=== PATIENT | male | born 1990 | race African-American/Black ===

== ENCOUNTER 2023-05-18 17:31 | Inpatient (IN) | payer OTHER ==
[2023-05-18] VITALS (7 sets, daily range): BP systolic 109–133; BP diastolic 68–83; TEMP 96; O2SAT 96–99
[~2023-05-18] VITALS: Ht 172.7 cm; Wt 69.4 kg
[2023-05-18] MEDS ORDERED: PIPERACILLIN /TAZOBACTAM 3.375 G in IV D5W 50 ML IV ONE (18:30)
[2023-05-18] MEDS ORDERED: ALBUTEROL FS 2.5 MG/3 ML VIAL.NEB CONTNEB ONE (18:30)
[2023-05-18] MEDS ORDERED: IBUP-1955 PO (18:31)
[2023-05-18] MEDS ORDERED: HYDR-500 PO (18:31)
[2023-05-18 19:10] LABS: BASOPHILS % (AUTO) 0.1 % (0.0-2.0); HEMATOCRIT 43 % (39-51); HEMOGLOBIN 13.7 g/dL (13.5-17.5); LYMPHOCYTES # (AUTO) 0.4 K/uL (0.8-4.8); LYMPHOCYTES % (AUTO) 1.7 % (20.0-44.0); MEAN CORPUSCULAR HEMOGLOBIN 26 PG (26.0-33.0); MEAN CORPUSCULAR HGB CONC 32 g/dl (31.0-36.0); MEAN CORPUSCULAR VOLUME 82 fL (80-96); MONOCYTES # (AUTO) 0.8 K/uL (0.1-1.30); MONOCYTES % (AUTO) 3.9 % (2.0-12.0); NEUTROPHILS # (AUTO) 20.3 K/uL (1.8-8.9); NEUTROPHILS % (AUTO) 94.3 % (43.0-81.0); PLATELET COUNT (AUTO) 278 K/uL (150-450); RED BLOOD CELL COUNT(AUTO) 5.24 MIL/uL (4.5-6.0); RED CELL DISTRIBUTION WIDTH 14.4 % (11.5-15.0); WHITE BLOOD COUNT (AUTO) 21.6 K/uL (4.3-11.0)
[2023-05-18] MEDS ORDERED: ALBUTEROL FS 2.5 MG/3 ML VIAL.NEB ONE (19:18)
[2023-05-18 19:21] LABS: CALCIUM, SERUM 9.3 mg/dL (8.5-10.1); CARBON DIOXIDE 23 mmol/L (21-32); CHLORIDE 100 mmol/L (98-107); GLUCOSE 125 mg/dL (74-106); SODIUM SERUM 134 mmol/L (136-145); UREA NITROGEN, BLOOD 12 mg/dL (7-18)
[2023-05-18 19:27] LABS: INR 1.02 (0.91-1.10); PARTIAL THROMBOPLASTIN TIME 27.5 SEC (24.3-34.3); PROTHROMBIN TIME 10.8 SECS (9.2-11.1)
[2023-05-18 19:28] LABS: D-DIMER 6.08 mg/L(FEU (0.17-0.50)
[2023-05-18 19:29] LABS: LACTIC ACID 1.4 mmol/L (0.4-2.0)
[2023-05-18 19:34] LABS: ALANINE AMINOTRANSFERASE 26 U/L (12-78); ALBUMIN 3.4 g/dL (3.4-5.0); ALKALINE PHOSPHATASE 139 U/L (46-116); ASPARTATE AMINOTRANSFERASE 66 U/L (15-37); BILIRUBIN,DIRECT 0.2 mg/dL (0.0-0.2); BILIRUBIN,TOTAL 0.9 mg/dL (0.2-1.0); NT-PRO BNP 60 pg/mL (0-125); TOTAL PROTEIN, SERUM 8.3 g/dL (6.4-8.2)
[2023-05-18] MEDS ORDERED: IOHEXOL-350 100 ML VIAL IV ONE (19:53)
[2023-05-18] MEDS ORDERED: IV NS 0.9% 250 ML IV ONE (19:53)
[2023-05-18] MEDS ORDERED: ALBUTEROL FS 2.5 MG/0.5 ML VIAL.NEB NEB PRN (20:00)
[2023-05-18] MEDS ORDERED: MORPHINE SULFATE INJ 2 MG/ML DISP.SYRIN IV PRN (20:00)
[2023-05-18 21:29] LABS: EOSINOPHILS % (MANUAL) 1 % (0-4); LYMPHOCYTES % (MANUAL) 7 % (16-48); MONOCYTES % (MANUAL) 8 % (0-11.0); NEUTROPHILS % (MANUAL) 84 (42-76); PLATELET ESTIMATE ADEQUATE
[2023-05-18] MEDS: IV NS 0.9% 1,000 ML IV SCH (22:58)
[2023-05-18] MEDS ORDERED: CEFEPIME 1 GM VIAL ONE (23:37)
[2023-05-18] MEDS: CEFEPIME 2 GM in IV D5W 100 ML IV SCH (23:46)
[2023-05-19] VITALS (45 sets, daily range): BP systolic 98–154; BP diastolic 63–100; TEMP 96.3–98.4; O2SAT 9–100
[2023-05-19] MEDS ORDERED: IPRATROPIUM/ALBUTEROL INHALER IH SCH
[2023-05-19] MEDS: ALBUTEROL FS 2.5 MG/0.5 ML VIAL.NEB NEB SCH ×4 (01:53→19:30)
[2023-05-19] MEDS: IPRATROPIUM NEB FS 0.5 MG/2.5 ML AMPUL.NEB IH SCH ×4 (01:53→19:30)
[2023-05-19 04:16] LABS: HEMATOCRIT 38 % (39-51); HEMOGLOBIN 12.2 g/dL (13.5-17.5); LYMPHOCYTES # (AUTO) 0.7 K/uL (0.8-4.8); LYMPHOCYTES % (AUTO) 2.6 % (20.0-44.0); MEAN CORPUSCULAR HEMOGLOBIN 26 PG (26.0-33.0); MEAN CORPUSCULAR HGB CONC 33 g/dl (31.0-36.0); MEAN CORPUSCULAR VOLUME 80 fL (80-96); MONOCYTES # (AUTO) 1.4 K/uL (0.1-1.30); MONOCYTES % (AUTO) 5.4 % (2.0-12.0); NEUTROPHILS # (AUTO) 23.8 K/uL (1.8-8.9); PLATELET COUNT (AUTO) 253 K/uL (150-450); RED BLOOD CELL COUNT(AUTO) 4.68 MIL/uL (4.5-6.0); RED CELL DISTRIBUTION WIDTH 14.3 % (11.5-15.0); WHITE BLOOD COUNT (AUTO) 25.9 K/uL (4.3-11.0)
[2023-05-19 04:28] LABS: ALBUMIN 3.1 g/dL (3.4-5.0); CALCIUM, SERUM 9.4 mg/dL (8.5-10.1); CREATININE 0.9 mg/dL (0.6-1.3); PHOSPHORUS 4.2 mg/dL (2.5-4.9); POTASSIUM 4.3 mmol/L (3.5-5.1); TOTAL PROTEIN, SERUM 7.8 g/dL (6.4-8.2)
[2023-05-19] MEDS: CEFEPIME 2 GM in IV D5W 100 ML IV SCH (07:39)
[2023-05-19] MEDS: IV NS 0.9% 1,000 ML IV SCH (08:51)
[2023-05-19] MEDS: ACETAMINOPHEN 325 MG TABLET PO PRN ×2 (09:57→18:02)
[2023-05-19] MEDS: PIPERACILLIN /TAZOBACTAM 3.375 G in IV D5W 100 ML IV SCH ×2 (10:49→18:02)
[2023-05-19] MEDS ORDERED: PIPERACILLIN /TAZOBACTAM 4.5 G in IV D5W 50 ML IV SCH (12:00)
[2023-05-19] MEDS: VANCOMYCIN 1 GM in IV D5W 250ml IV SCH ×2 (12:52→20:53)
[2023-05-19] MEDS ORDERED: CEFEPIME 2 GM in IV D5W 100 ML IV SCH (13:00)
[2023-05-20] VITALS (31 sets, daily range): BP systolic 98–139; BP diastolic 62–89; TEMP 98.4–101.7; O2SAT 87–100
[2023-05-20] MEDS: ACETAMINOPHEN 325 MG TABLET PO PRN ×3 (00:33→19:56)
[2023-05-20] MEDS: MORPHINE SULFATE INJ 2 MG/ML DISP.SYRIN IV PRN ×2 (00:38→02:55)
[2023-05-20] MEDS: IV NS 0.9% 1,000 ML IV SCH (00:53)
[2023-05-20] MEDS: ALBUTEROL FS 2.5 MG/0.5 ML VIAL.NEB NEB SCH ×5 (01:30→19:30)
[2023-05-20] MEDS: IPRATROPIUM NEB FS 0.5 MG/2.5 ML AMPUL.NEB IH SCH ×5 (01:30→19:30)
[2023-05-20] MEDS: PIPERACILLIN /TAZOBACTAM 3.375 G in IV D5W 100 ML IV SCH ×3 (03:04→18:21)
[2023-05-20] MEDS: VANCOMYCIN 1 GM in IV D5W 250ml IV SCH ×4 (04:46→23:50)
[2023-05-20 07:27] LABS: POTASSIUM 3.8 mmol/L (3.5-5.1)
[2023-05-20 11:21] LABS: BASOPHILS % (AUTO) 0.1 % (0.0-2.0); HEMATOCRIT 37 % (39-51); HEMOGLOBIN 12.3 g/dL (13.5-17.5); LYMPHOCYTES # (AUTO) 0.7 K/uL (0.8-4.8); LYMPHOCYTES % (AUTO) 4.9 % (20.0-44.0); MEAN CORPUSCULAR HEMOGLOBIN 27 PG (26.0-33.0); MEAN CORPUSCULAR HGB CONC 33 g/dl (31.0-36.0); MEAN CORPUSCULAR VOLUME 81 fL (80-96); MONOCYTES % (AUTO) 6.8 % (2.0-12.0); NEUTROPHILS # (AUTO) 13.1 K/uL (1.8-8.9); NEUTROPHILS % (AUTO) 88.2 % (43.0-81.0); PLATELET COUNT (AUTO) 234 K/uL (150-450); RED BLOOD CELL COUNT(AUTO) 4.62 MIL/uL (4.5-6.0); WHITE BLOOD COUNT (AUTO) 14.8 K/uL (4.3-11.0)
[2023-05-20] MEDS: methylPREDNISolone SOD SUCC 40 MG/ML VIAL IV SCH (16:44)
[2023-05-21] VITALS (36 sets, daily range): BP systolic 96–139; BP diastolic 66–103; TEMP 98.1–99.2; O2SAT 62–100
[2023-05-21] MEDS: IPRATROPIUM NEB FS 0.5 MG/2.5 ML AMPUL.NEB IH SCH ×4 (01:16→19:28)
[2023-05-21] MEDS: ALBUTEROL FS 2.5 MG/0.5 ML VIAL.NEB NEB SCH ×4 (01:16→19:28)
[2023-05-21] MEDS: MORPHINE SULFATE INJ 2 MG/ML DISP.SYRIN IV PRN ×2 (01:30→11:34)
[2023-05-21] MEDS: PIPERACILLIN /TAZOBACTAM 3.375 G in IV D5W 100 ML IV SCH ×2 (02:33→11:34)
[2023-05-21] MEDS: ACETAMINOPHEN 325 MG TABLET PO PRN ×2 (03:51→20:19)
[2023-05-21 04:57] LABS: CALCIUM, SERUM 9.9 mg/dL (8.5-10.1); POTASSIUM 3.9 mmol/L (3.5-5.1)
[2023-05-21] MEDS: VANCOMYCIN 1 GM in IV D5W 250ml IV SCH (06:26)
[2023-05-21 09:07] LABS: BASOPHILS # (AUTO) 0.1 K/uL (0.0-0.2); BASOPHILS % (AUTO) 0.7 % (0.0-2.0); EOSINOPHILS % (AUTO) 0.1 % (0.0-6.0); HEMATOCRIT 41 % (39-51); HEMOGLOBIN 13.4 g/dL (13.5-17.5); LYMPHOCYTES # (AUTO) 0.7 K/uL (0.8-4.8); LYMPHOCYTES % (AUTO) 5.4 % (20.0-44.0); MEAN CORPUSCULAR HEMOGLOBIN 27 PG (26.0-33.0); MEAN CORPUSCULAR HGB CONC 33 g/dl (31.0-36.0); MEAN CORPUSCULAR VOLUME 82 fL (80-96); NEUTROPHILS # (AUTO) 11.7 K/uL (1.8-8.9); NEUTROPHILS % (AUTO) 86.8 % (43.0-81.0); PLATELET COUNT (AUTO) 251 K/uL (150-450); RED CELL DISTRIBUTION WIDTH 14.1 % (11.5-15.0); WHITE BLOOD COUNT (AUTO) 13.5 K/uL (4.3-11.0)
[2023-05-21] MEDS: methylPREDNISolone SOD SUCC 40 MG/ML VIAL IV SCH ×2 (09:43→16:13)
[2023-05-21] MEDS: MENTHOL/CETYLPYRD (CEPACOL) 1 LOZ LOZENGE PO PRN ×2 (14:39→16:12)
[2023-05-21] MEDS ORDERED: ENOXAPARIN SODIUM 40 MG/0.4 ML DISP.SYRIN SQ SCH (15:00)
[2023-05-21] MEDS: ALPRAZOLAM 0.25 MG TABLET PO PRN (16:13)
[2023-05-21] MEDS: VANCOMYCIN 1.25 GM in IV D5W 250 ML IV SCH ×2 (17:27→21:45)
[2023-05-21] MEDS: ZOSYN IVPB 3.375 G in IV D5W 50ml IV SCH ×2 (20:17→23:43)
[2023-05-22] VITALS (23 sets, daily range): BP systolic 111–137; BP diastolic 33–106; TEMP 97.4–99.2; O2SAT 85–100
[2023-05-22] MEDS: IPRATROPIUM NEB FS 0.5 MG/2.5 ML AMPUL.NEB IH SCH ×3 (01:10→20:04)
[2023-05-22] MEDS: ALBUTEROL FS 2.5 MG/0.5 ML VIAL.NEB NEB SCH ×3 (01:11→20:04)
[2023-05-22] MEDS: MORPHINE SULFATE INJ 2 MG/ML DISP.SYRIN IV PRN ×2 (04:12→19:48)
[2023-05-22] MEDS: VANCOMYCIN 1.25 GM in IV D5W 250 ML IV SCH ×3 (05:12→21:13)
[2023-05-22] MEDS: ACETAMINOPHEN 325 MG TABLET PO PRN ×2 (05:40→17:30)
[2023-05-22] MEDS: ZOSYN IVPB 3.375 G in IV D5W 50ml IV SCH ×4 (05:44→23:28)
[2023-05-22] MEDS: methylPREDNISolone SOD SUCC 40 MG/ML VIAL IV SCH ×2 (08:10→17:30)
[2023-05-22 08:42] LABS: CALCIUM, SERUM 9.5 mg/dL (8.5-10.1); CREATININE 0.8 mg/dL (0.6-1.3); POTASSIUM 4.3 mmol/L (3.5-5.1)
[2023-05-22] MEDS: MENTHOL/CETYLPYRD (CEPACOL) 1 LOZ LOZENGE PO PRN (09:29)
[2023-05-22] MEDS: ONDANSETRON HCL/PF 4 MG/2 ML VIAL IVP PRN (23:35)
[2023-05-23] VITALS (10 sets, daily range): BP systolic 111–128; BP diastolic 66–76; TEMP 97.5–98.2; O2SAT 95–99
[2023-05-23] MEDS: IPRATROPIUM NEB FS 0.5 MG/2.5 ML AMPUL.NEB IH SCH ×4 (01:30→20:41)
[2023-05-23] MEDS: ALBUTEROL FS 2.5 MG/0.5 ML VIAL.NEB NEB SCH ×4 (01:30→20:41)
[2023-05-23] MEDS: ZOSYN IVPB 3.375 G in IV D5W 50ml IV SCH ×4 (05:31→23:52)
[2023-05-23] MEDS: VANCOMYCIN 1.25 GM in IV D5W 250 ML IV SCH ×3 (06:27→21:32)
[2023-05-23] MEDS: methylPREDNISolone SOD SUCC 40 MG/ML VIAL IV SCH ×2 (08:23→16:32)
[2023-05-23] MEDS: ALPRAZOLAM 0.25 MG TABLET PO PRN ×2 (10:51→21:43)
[2023-05-23] MEDS: HYDROCODONE BIT/HOMATROPINE 5 ML UDC PO PRN (13:07)
[2023-05-23] MEDS: ACETAMINOPHEN 325 MG TABLET PO PRN (16:32)
[2023-05-23] MEDS ORDERED: diphenhydrAMINE HCL 25 MG CAPSULE PO PRN (20:30)
[2023-05-23] MEDS ORDERED: FAMOTIDINE/PF INJ 20 MG/2 ML VIAL IV ONE (20:30)
[2023-05-23] MEDS: MORPHINE SULFATE INJ 2 MG/ML DISP.SYRIN IV PRN (22:56)
[2023-05-24] VITALS (12 sets, daily range): BP systolic 109–130; BP diastolic 65–84; TEMP 97.7–98.2; O2SAT 95–100
[2023-05-24] MEDS: IPRATROPIUM NEB FS 0.5 MG/2.5 ML AMPUL.NEB IH SCH ×4 (01:30→19:56)
[2023-05-24] MEDS: ALBUTEROL FS 2.5 MG/0.5 ML VIAL.NEB NEB SCH ×4 (01:30→19:56)
[2023-05-24] MEDS: VANCOMYCIN 1.25 GM in IV D5W 250 ML IV SCH ×3 (05:26→22:08)
[2023-05-24] MEDS: ZOSYN IVPB 3.375 G in IV D5W 50ml IV SCH (05:28)
[2023-05-24] MEDS: HYDROCODONE BIT/HOMATROPINE 5 ML UDC PO PRN ×2 (06:47→14:28)
[2023-05-24 06:56] LABS: CALCIUM, SERUM 8.7 mg/dL (8.5-10.1); CREATININE 0.7 mg/dL (0.6-1.3); POTASSIUM 3.6 mmol/L (3.5-5.1)
[2023-05-24] MEDS: ACETAMINOPHEN 325 MG TABLET PO PRN (06:57)
[2023-05-24] MEDS: ALPRAZOLAM 0.25 MG TABLET PO PRN ×2 (07:02→16:28)
[2023-05-24] MEDS: methylPREDNISolone SOD SUCC 40 MG/ML VIAL IV SCH ×2 (09:07→16:28)
[2023-05-24] MEDS: PIPERACILLIN /TAZOBACTAM 3.375 G in IV D5W 100 ML IV SCH ×2 (12:01→20:16)
[2023-05-24] MEDS: ONDANSETRON HCL/PF 4 MG/2 ML VIAL IVP PRN (20:16)
[2023-05-24] MEDS: MORPHINE SULFATE INJ 2 MG/ML DISP.SYRIN IV PRN (20:39)
[2023-05-25] VITALS (11 sets, daily range): BP systolic 107–136; BP diastolic 65–84; TEMP 97.7–98.6; O2SAT 95–100
[2023-05-25] MEDS: ALBUTEROL FS 2.5 MG/0.5 ML VIAL.NEB NEB SCH ×4 (01:30→20:02)
[2023-05-25] MEDS: IPRATROPIUM NEB FS 0.5 MG/2.5 ML AMPUL.NEB IH SCH ×4 (01:30→20:02)
[2023-05-25] MEDS: ZOSYN IVPB 3.375 G in IV D5W 50ml IV SCH ×4 (03:34→20:35)
[2023-05-25 07:23] LABS: CALCIUM, SERUM 8.9 mg/dL (8.5-10.1); CREATININE 0.7 mg/dL (0.6-1.3); POTASSIUM 3.6 mmol/L (3.5-5.1)
[2023-05-25] MEDS: methylPREDNISolone SOD SUCC 40 MG/ML VIAL IV SCH (08:28)
[2023-05-25] MEDS: HYDROCODONE BIT/HOMATROPINE 5 ML UDC PO PRN ×2 (08:55→22:53)
[2023-05-25] MEDS: VANCOMYCIN 1.25 GM in IV D5W 250 ML IV SCH ×3 (09:11→21:25)
[2023-05-25] MEDS: ALPRAZOLAM 0.25 MG TABLET PO PRN ×2 (09:13→21:25)
[2023-05-25] MEDS: ONDANSETRON HCL/PF 4 MG/2 ML VIAL IVP PRN ×2 (10:43→22:53)
[2023-05-25] MEDS: ACETAMINOPHEN 325 MG TABLET PO PRN (10:52)
[2023-05-25] MEDS: MORPHINE SULFATE INJ 2 MG/ML DISP.SYRIN IV PRN (19:52)
[2023-05-25] MEDS: MENTHOL/CETYLPYRD (CEPACOL) 1 LOZ LOZENGE PO PRN (21:26)
[2023-05-26] VITALS (10 sets, daily range): BP systolic 121–146; BP diastolic 75–97; TEMP 98–98.6; O2SAT 87–99
[2023-05-26] MEDS: IPRATROPIUM NEB FS 0.5 MG/2.5 ML AMPUL.NEB IH SCH ×4 (01:30→19:15)
[2023-05-26] MEDS: ALBUTEROL FS 2.5 MG/0.5 ML VIAL.NEB NEB SCH ×4 (01:30→19:15)
[2023-05-26] MEDS: MENTHOL/CETYLPYRD (CEPACOL) 1 LOZ LOZENGE PO PRN ×3 (01:30→20:15)
[2023-05-26] MEDS: ZOSYN IVPB 3.375 G in IV D5W 50ml IV SCH ×2 (02:28→10:40)
[2023-05-26] MEDS: VANCOMYCIN 1.25 GM in IV D5W 250 ML IV SCH ×2 (05:01→14:26)
[2023-05-26] MEDS: ALPRAZOLAM 0.25 MG TABLET PO PRN ×3 (07:39→21:53)
[2023-05-26 07:48] LABS: BASOPHILS % (AUTO) 0.1 % (0.0-2.0); EOSINOPHILS # (AUTO) 0.1 K/uL (0.0-0.7); EOSINOPHILS % (AUTO) 1.1 % (0.0-6.0); HEMATOCRIT 36 % (39-51); HEMOGLOBIN 11.8 g/dL (13.5-17.5); LYMPHOCYTES # (AUTO) 1.5 K/uL (0.8-4.8); LYMPHOCYTES % (AUTO) 11.4 % (20.0-44.0); MEAN CORPUSCULAR HEMOGLOBIN 26 PG (26.0-33.0); MEAN CORPUSCULAR HGB CONC 33 g/dl (31.0-36.0); MEAN CORPUSCULAR VOLUME 81 fL (80-96); MONOCYTES # (AUTO) 0.9 K/uL (0.1-1.30); MONOCYTES % (AUTO) 7.2 % (2.0-12.0); NEUTROPHILS # (AUTO) 10.4 K/uL (1.8-8.9); NEUTROPHILS % (AUTO) 80.2 % (43.0-81.0); PLATELET COUNT (AUTO) 374 K/uL (150-450); RED BLOOD CELL COUNT(AUTO) 4.47 MIL/uL (4.5-6.0); RED CELL DISTRIBUTION WIDTH 14.1 % (11.5-15.0)
[2023-05-26 08:07] LABS: CALCIUM, SERUM 8.6 mg/dL (8.5-10.1); CREATININE 0.8 mg/dL (0.6-1.3); MAGNESIUM 2.1 mg/dL (1.8-2.4); PHOSPHORUS 3.9 mg/dL (2.5-4.9); POTASSIUM 3.4 mmol/L (3.5-5.1)
[2023-05-26] MEDS ORDERED: POTASSIUM CHLORIDE 20 MEQ TAB.PRT.SR PO ONE (10:00)
[2023-05-26] MEDS: methylPREDNISolone SOD SUCC 40 MG/ML VIAL IV SCH (10:40)
[2023-05-26] MEDS: MORPHINE SULFATE INJ 2 MG/ML DISP.SYRIN IV PRN ×3 (10:54→23:37)
[2023-05-26 16:23] LABS: EOSINOPHILS % (MANUAL) 1 % (0-4); LYMPHOCYTES % (MANUAL) 13 % (16-48); MONOCYTES % (MANUAL) 11 % (0-11.0); NEUTROPHILS % (MANUAL) 75 (42-76); PLATELET ESTIMATE ADEQUATE
[2023-05-26] MEDS: HYDROCODONE BIT/HOMATROPINE 5 ML UDC PO PRN (20:26)
[2023-05-26] MEDS: DOXYCYCLINE HYCLATE (100 MG) 100 MG TABLET PO SCH (21:12)
[2023-05-26] MEDS: AMOX/CLAVULANATE 875 MG TABLET PO SCH (21:12)
[2023-05-27] VITALS (7 sets, daily range): BP systolic 115–135; BP diastolic 79–95; TEMP 97.7–98.5; O2SAT 90–96
[2023-05-27] MEDS: ALBUTEROL FS 2.5 MG/0.5 ML VIAL.NEB NEB SCH ×3 (01:24→13:36)
[2023-05-27] MEDS: IPRATROPIUM NEB FS 0.5 MG/2.5 ML AMPUL.NEB IH SCH ×3 (01:24→13:36)
[2023-05-27] MEDS: MENTHOL/CETYLPYRD (CEPACOL) 1 LOZ LOZENGE PO PRN (04:34)
[2023-05-27] MEDS: AMOX/CLAVULANATE 875 MG TABLET PO SCH (08:39)
[2023-05-27] MEDS: ALPRAZOLAM 0.25 MG TABLET PO PRN ×2 (08:39→16:03)
[2023-05-27] MEDS: DOXYCYCLINE HYCLATE (100 MG) 100 MG TABLET PO SCH (08:40)
[2023-05-27] MEDS: methylPREDNISolone SOD SUCC 40 MG/ML VIAL IV SCH (09:00)
[2023-05-27] MEDS: HYDROCODONE BIT/HOMATROPINE 5 ML UDC PO PRN (14:30)
[2023-05-27] MEDS: ACETAMINOPHEN 325 MG TABLET PO PRN (15:58)
[2023-05-27] MEDS ORDERED: DOXY100T2 PO (16:16)
[2023-05-27] MEDS ORDERED: AMOX1TAB16 PO (16:16)
[2023-05-27] MEDS ORDERED: ALBU8.5H8 INH (16:16)
[2023-05-27] MEDS ORDERED: METH4TAB3 PO (16:16)
== END 2023-05-27 17:10 | disposition home or self-care (01) | DRG 720 ==
LOC: ER 17:40 → ICU 22:23 → TELE1 05-22 16:10 → TELE-TD 05-22 16:19 → TELE1 05-25 09:44 → MEDSG1 05-25 11:41
PROVIDERS: ADMIT Internal Medicine; ATTEND Student in an Organized Health Care Education/Training Program
DX: A41.9 Sepsis, unspecified organism (principal); J96.01 Acute respiratory failure with hypoxia; J69.0 Pneumonitis due to inhalation of food and vomit; J47.0 Bronchiectasis with acute lower respiratory infection; R65.20 Severe sepsis without septic shock; Z20.822 Contact with and (suspected) exposure to COVID-19; J45.909 Unspecified asthma, uncomplicated; G89.29 Other chronic pain; F41.9 Anxiety disorder, unspecified
CPT/HCPCS: 36415; 36600; 71045-TC; 80048-TC; 80053-TC; 80076-TC; 80202-TC; 82803-TC; 82962-TC; 83605-TC; 83735-TC; 83880; 84100-TC; 84484-TC; 85025-TC; 85378-TC; 85730-TC; 86850-TC; 87040-TC; 94799-TC; 97116-TC; 97530-TC; A4223; G0378; J0692; J2270; J2405; J2543; J2920; J3370; J3490; J7030; J7050; J7060; Q0163; Q9967